=== PATIENT | male | born 1975 | race Caucasian/White ===

== ENCOUNTER 2017-06-23 17:52 | Emergency (ER) | payer OTHER ==
[2017-06-23 18:04] VITALS: TEMP 98.8
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
[2017-06-23] MEDS ORDERED: HYDROCOD/APAP 5/325 PREPACK#6 BTL TAKEHOME ONE (18:40)
[2017-06-23 19:07] VITALS: BP 108/79; PULSE 79; RESP 15; O2SAT 99
== END 2017-06-23 19:08 | disposition home or self-care (01) ==
LOC: CED 17:52
DX: S92.001A Unspecified fracture of right calcaneus, initial encounter for closed fracture (principal); F17.200 Nicotine dependence, unspecified, uncomplicated; V18.0XXA Pedal cycle driver injured in noncollision transport accident in nontraffic accident, initial encounter; Y92.89 Other specified places as the place of occurrence of the external cause; Y99.8 Other external cause status; Y93.55 Activity, bike riding
CPT/HCPCS: 73610-PO; 73630-PO

== ENCOUNTER → 2017-06-27 | Outpatient (CLI) | payer OTHER | LOC: CIMAGING 08:10 | PROVIDERS: ATTEND Physician Assistant | DX: S92.001D Unspecified fracture of right calcaneus, subsequent encounter for fracture with routine healing (principal) | CPT/HCPCS: 73700-PO ==